=== PATIENT | male | born 1960 | race Hispanic/Latino ===

== ENCOUNTER 2018-09-13 08:24 | Emergency (ER) | payer BC ==
[2018-09-13 08:25] VITALS: BMI 26.9
[2018-09-13 08:26] VITALS: O2SAT 99
--- NOTE | 2018-09-13 08:58 | ED PDOC ---
HPI: Back Time Seen by Provider: 09/13/18 08:25 Chief Complaint (Nursing): Back Pain Chief Complaint (Provider): Back Pain History Per: Patient History/Exam Limitations: no limitations Onset/Duration Of Symptoms: Days (x2 days) Current Symptoms Are (Timing): Still Present Exacerbating Factor(s): Movement Additional Complaint(s): Francisco Garcia is a 58 year old male with a past medical history of a herniated disc, who presents to the emergency department complaining of lower back pain that is worse with movement, onset x2 days ago. Patient states he took OTC but has not had any relief in symptoms. He states he had these symptoms in the past and had a MRI done x2 years ago that showed a herniated disc. Patient denies any numbness, tingling, incontinence, or changes in pain location. PMD: Jefry Vergara Past Medical History Reviewed: Historical Data, Nursing Documentation, Vital Signs Vital Signs: Last Vital Signs Temp 97.4 F L 09/13/18 08:25 Pulse 65 09/13/18 08:25 Resp 17 09/13/18 08:25 BP 138/95 H 09/13/18 08:25 Pulse Ox 99 09/13/18 08:25 - Medical History PMH: No Chronic Diseases - Surgical History Surgical History: Hernia Repair - Family History Family History: States: Unknown Family Hx - Home Medications Home Medications: Ambulatory Orders Medication Instructions Recorded oxyCODONE/Acetaminophen [Percocet 1 tab PO Q6H PRN #10 tab 09/13/18 5/325 mg Tab] - Allergies Allergies/Adverse Reactions: Allergies Allergy/AdvReac Type Severity Reaction Status Date / Time No Known Allergies Allergy Verified 04/05/16 04:58 Review of Systems ROS Statement: Except As Marked, All Systems Reviewed And Found Negative Genitourinary Male: Negative for: Incontinence Musculoskeletal: Positive for: Back Pain Neurological: Negative for: Weakness, Numbness Physical Exam - Reviewed Nursing Documentation Reviewed: Yes Vital Signs Reviewed: Yes - Physical Exam Appears: Negative for: Well (mild painful distress) Head Exam: Positive for: ATRAUMATIC, NORMOCEPHALIC Skin: Positive for: Normal Color, Warm, Dry Eye Exam: Positive for: Normal appearance, EOMI, PERRL ENT: Positive for: Normal ENT Inspection Neck: Positive for: Normal, Painless ROM, Supple Cardiovascular/Chest: Positive for: Regular Rate, Rhythm. Negative for: Murmur Respiratory: Positive for: Normal Breath Sounds. Negative for: Respiratory Distress Gastrointestinal/Abdominal: Positive for: Normal Exam, Soft. Negative for: Tenderness Back: Positive for: Other (minimal tenderness to bilateral lower lumbar paraspinal area) Extremity: Positive for: Normal ROM, Other (negative straight leg test). Negative for: Pedal Edema, Deformity Neurologic/Psych: Positive for: Alert, Oriented (x3), Gait. Negative for: Motor/Sensory Deficits - ECG O2 Sat by Pulse Oximetry: 99 (RA) Pulse Ox Interpretation: Normal Medical Decision Making Medical Decision Making: Time: 0850 Impression: Acute on chronic lower back pain Plan: --ED urine dipstick --Flexeril 10 mg PO --Toradol 30 mg IM 10:00 Pt c/o continued pain, will order Percocet 1 tab. 11:41 Patient is feeling better and will be discharged. Scribe Attestation: Documented by Baldemar Marin, acting as a scribe for Estephania Orellana MD. Provider Scribe Attestation: All medical record entries made by the Scribe were at my direction and personally dictated by me. I have reviewed the chart and agree that the record accurately reflects my personal performance of the history, physical exam, medical decision making, and the department course for this patient. I have also personally directed, reviewed, and agree with the discharge instructions and disposition. Disposition - Clinical Impression Clinical Impression: Low back pain - Disposition Referrals: Jefry Vergara MD [Family Provider] - Disposition Time: 11:41 Condition: IMPROVED Prescriptions: oxyCODONE/Acetaminophen [Percocet 5/325 mg Tab] 1 tab PO Q6H PRN #10 tab PRN Reason: Pain, Severe (8-10) Instructions: Low Back Pain in Adults Forms: [employer] ([place]ian)
[2018-09-13] MEDS ORDERED: Oxycodone/Acetaminophen 5/325 mg Tab PO STA (10:04)
[2018-09-13] MEDS ORDERED: Oxycodone/Acetaminophen 5/325 mg Tab ONE (10:14)
[2018-09-13 11:52] VITALS: BP 130/78; PULSE 68; RESP 16; TEMP 97.2
== END 2018-09-13 11:53 | disposition home or self-care (01) ==
LOC: H.ER 08:24
DX: M54.5 Low back pain (principal); G89.29 Other chronic pain
CPT/HCPCS: 96372; 99283; J1885